=== PATIENT | male | born 1985 | race Caucasian/White ===

== ENCOUNTER 2016-09-07 21:48 | Emergency (ER) | payer OTHER ==
--- NOTE | ~2016-09-07 | EKG ---
PATIENT: ISAAC RAPHAEL UNIT #: [id number] Ventricular Rate: 78 BPM Atrial Rate: 78 BPM P-R Interval: 136 ms QRS Duration: 84 ms Q-T Interval: 402 ms QTC Calculation(Bezet): 458 ms P Horse Branch: 29 degrees Calculated R Horse Branch: 70 degrees Calculated T Horse Branch: 37 degrees Diagnosis Line: Normal sinus rhythm Diagnosis Line: Normal ECG Diagnosis Line: No previous ECGs available Diagnosis Line: Confirmed by DON HINES MD ([id number]) on 09/08/2016 Diagnosis Line: 4:09:39 PM INTERPRETING MD: FLORA ALMODOVAR
--- NOTE | ~2016-09-07 | CT52 ---
[facility] A Service of [facility] & [facility] RADIOLOGY TEXT RESULTS PATIENT: ISAAC RAPHAEL LOCATION: [facility] : [birth year] UNIT #: [id number] AGE: [address]: Russell Flanagan MD SEX: M ORDER DR: [id number] [facility] [address] [place], [place] [address] [id number] E MR#: [id number] Acc #: [id number] NAME: ISAAC RAPHAEL. : 1985 SEX: M STUDY DATE/TIME: 09/07/2016 20:56 UNIT: [facility] ROOM: STUDY DESCRIPTION: CT Cervical Spine Wo Cont Attending Physician: Russell Flanagan M.D. Ordering Physician: Russell Flanagan M.D. Primary Care Physician: Will Dooley Jr., M.D. MEDICAL IMAGING REPORT This report is preliminary unless electronic signature is present EXAM CT scan of the cervical spine without contrast INDICATIONS Seizure today with trauma to head and neck and neck pain. TECHNIQUE This CT exam was performed with one or more of the following radiation dose reduction techniques: automatic control, adjustment of mA and/or kV according to patient size, and iterative reconstruction. FINDINGS Axial 2 mm were obtained through the cervical spine and sagittal and coronal reconstructions were generated. The vertebral bodies have normal alignment. There is no fracture or subluxation. The disc spaces are normal. IMPRESSION Normal CT scan of the cervical spine without contrast Dictated by... Brice Fregoos M.D. THIS IS AN ELECTRONICALLY VERIFIED REPORT Brice Fregoso M.D. at 09/09/2016 7:14 AM ASHLEY/arun TD: 09/07/2016 23:57 JOB #: [id number] MEDICAL IMAGING REPORT Page 1 of 1 COPY
--- NOTE | ~2016-09-07 | CT71 ---
[facility] A Service of [facility] RADIOLOGY TEXT RESULTS PATIENT: ISAAC RAPHAEL LOCATION: [facility] : 87 UNIT #: [id number] AGE: [address]: Russell Flanagan MD SEX: M ORDER DR: [id number] [facility] [address] [place], [place] [address] [id number] E MR#: [id number] Acc #: [id number] NAME: ISAAC RAPHAEL. : 1985 SEX: M STUDY DATE/TIME: 09/07/2016 20:48 UNIT: [facility] ROOM: STUDY DESCRIPTION: CT Head Wo Contrast Attending Physician: Russell Flanagan M.D. Ordering Physician: Russell Flanagan M.D. Primary Care Physician: Will Dooley Jr., M.D. MEDICAL IMAGING REPORT This report is preliminary unless electronic signature is present EXAM Head CT without contrast 09/07/2016 HISTORY Seizure today prior to arrival in emergency department hit posterior top of head posterior neck pain. TECHNIQUE This CT exam was performed with one or more of the following radiation dose reduction techniques: automatic control, adjustment of mA and/or kV according to patient size, and iterative reconstruction. FINDINGS Axial noncontrast images were obtained from the skull base to the vertex. Ventricular size and configuration are normal. There is no evidence of acute infarct or hemorrhage. There are no extra-axial fluid collections. No mass lesion or mass effect is seen. There are no skull fractures. IMPRESSION Normal noncontrast head CT. Dictated by... Perry Osuna M.D. THIS IS AN ELECTRONICALLY VERIFIED REPORT Perry Osuna M.D. at 09/08/2016 3:17 PM DELROY/rnr TD: 09/07/2016 23:59 JOB #: [id number] MEDICAL IMAGING REPORT [facility] A Service [facility] RADIOLOGY TEXT RESULTS PATIENT: ISAAC RAPHAEL LOCATION: [facility] : 87 UNIT #: [id number] AGE: [address]: Russell Flanagan MD SEX: M ORDER DR: Page 1 of 1 COPY
[2016-09-07 19:57] LABS: BASOPHIL% 0.5 % (0-2.5); EOSINOPHIL# 0.2 X10e3 (0-0.7); EOSINOPHIL% 1.7 % (0.0-7.0); HEMATOCRIT 40.6 % (38.0-50.0); HEMOGLOBIN 13.5 gm/dL (13.0-16.0); LYMPHOCYTE# 2.2 X10e3 (1.0-3.5); LYMPHOCYTE% 24.7 % (17.0-45.0); MEAN CELL VOLUME 82.1 FL (83-96); MEAN CORPUSCULAR HEMOGLOBIN 27.2 PG (28-34); MEAN CORPUSCULAR HGB CONC 33.1 g/dL (30-36); MEAN PLATELET VOLUME 8.6 FL (6.5-11.5); MONOCYTE# 0.4 X10e3 (0-1.0); MONOCYTE% 4.5 % (3.0-12.0); NEUTROPHIL# 6.1 X10e3 (1.5-7.1); NEUTROPHIL% 68.6 % (40-75); PLATELET COUNT 253 X10e3 (140-420); RED BLOOD COUNT 4.94 X10e (3.90-5.60); RED CELL DISTRIBUTION WIDTH 15.8 % (11.0-15.5)
[2016-09-07 19:58] LABS: DIFF IND NO
[2016-09-07 20:20] LABS: CALCIUM SERUM 9.4 mg/dL (8.4-10.2); GLOM FILT RATE Estimated 100.6 mL/min (>60)
[~2016-09-07 21:48] MED LIST: DEPAKOTE PO; KEFLEX500 MG PO
[2016-09-07 22:23] LABS: AMPHETAMINE NEG (NEG); BARBITURATES NEG (NEG); BENZODIAZEPINES POS (NEG); COCAINE NEG (NEG); MARIJUANA POS (NEG); OPIATES POS (NEG); TRICYCLIC ANTIDEPRESSANTS NEG (NEG); U METHADONE NEG (NEG)
== END 2016-09-07 21:50 | disposition home or self-care (01) ==
LOC: CED 21:48
PROVIDERS: Emergency Medicine
DX: R56.9 Unspecified convulsions (principal); S00.91XA Abrasion of unspecified part of head, initial encounter; S00.512A Abrasion of oral cavity, initial encounter; W22.8XXA Striking against or struck by other objects, initial encounter; Z79.899 Other long term (current) drug therapy
CPT/HCPCS: 36415; 70450; 72125; 80048; 80164; 80307; 82947; 85025; 93005; 96360; 99284; J1953